=== PATIENT | female | born 1965 | race Caucasian/White ===

== ENCOUNTER 2025-05-26 10:48 | Emergency (ER) | payer OTHER ==
[~2025-05-26] VITALS: Ht 149.8 cm; Wt 73.5 kg
== END 2025-05-26 13:18 | disposition home or self-care (01) ==
LOC: ED 10:48
DX: S92.511A Displaced fracture of proximal phalanx of right lesser toe(s), initial encounter for closed fracture (principal); W22.09XA Striking against other stationary object, initial encounter; Y93.89 Activity, other specified; Y92.89 Other specified places as the place of occurrence of the external cause; Y99.8 Other external cause status